=== PATIENT | male | born 1990 | race Caucasian/White ===

== ENCOUNTER 2016-11-16 10:53 | Day surgery (SDC) | payer OTHER ==
[2016-11-15 14:07] VITALS: BMI 25.3
[2016-11-16] MEDS ORDERED: PROPOFOL 20 ML ONE (13:34)
[2016-11-16 14:20] VITALS: TEMP 97.5
[2016-11-16 15:12] VITALS: BP 119/60; PULSE 79
--- NOTE | 2016-11-17 13:39 | PATH ---
Surgical Pathology Report Patient Name: MADI PEOPLES [facility]. Rec. #: [id number] /Age/Gender: 1990 (Age: 26) / M Account: [id number] Location: [facility]-ENDOSCOPY Taken: 11/16/2016 Received: 11/16/2016 Reported: 11/17/2016 Physicians: Dannie Albright M.D. Specimen(s) Received A: BX STOMACH B: BX ESOPHAGUS Clinical History Dysphagia Severe gastritis Final Diagnosis A. STOMACH, BIOPSY: GASTRIC OXYNTIC MUCOSA WITH ACTIVE MARKED CHRONIC GASTRITIS. IMMUNOSTAIN FOR H. PYLORI IS POSITIVE FOR ORGANISMS (MODERATE NUMBER OF ORGANISMS). B. ESOPHAGUS, MID, BIOPSY: SQUAMOUS EPITHELIUM WITH CHRONIC INFLAMMATION AND REFLUX TYPE CHANGES. NO EVIDENCE OF EOSINOPHILIC ESOPHAGITIS. Electronically Signed Gordo Patino M.D. Gross Description A. Received in formalin, labeled "biopsy stomach" are 2 anderson, irregular portions of soft tissue measuring 0.1 and 0.6 cm in greatest dimension. The specimens are submitted in toto in one cassette. B. Received in formalin, labeled "biopsy mid esophagus" are 2 anderson, irregular portions of soft tissue measuring 0.2 and 0.4 cm in greatest dimension. The specimens are submitted in toto in one cassette. 11/16/201611/16/2016
== END 2016-11-16 15:19 | disposition home or self-care (01) ==
LOC: JASU-ENDO 10:53
PROVIDERS: ATTEND Internal Medicine Gastroenterology
PROC: 0DB68ZX Excision of Stomach, Via Natural or Artificial Opening Endoscopic, Diagnostic (ICD-10-PCS; 2016-11-16)
PROC: 0DB58ZX Excision of Esophagus, Via Natural or Artificial Opening Endoscopic, Diagnostic (ICD-10-PCS; principal; 2016-11-16 12:00)
DX: R13.10 Dysphagia, unspecified (principal); R10.13 Epigastric pain
CPT/HCPCS: 88305-TC; 88342-TC